=== PATIENT | male | born 1940 | race Caucasian/White ===

== ENCOUNTER → 2018-03-03 | Outpatient (CLI) | payer OTHER, BC | LOC: HYPER 07:10 | DX: L89.322 Pressure ulcer of left buttock, stage 2 (principal); L89.311 Pressure ulcer of right buttock, stage 1; M54.5 Low back pain; M48.061 Spinal stenosis, lumbar region without neurogenic claudication; Z87.891 Personal history of nicotine dependence; Z85.89 Personal history of malignant neoplasm of other organs and systems ==